=== PATIENT | female | born 1985 | race Caucasian/White ===

== ENCOUNTER → 2022-04-20 | Outpatient (CLI) | payer BC ==
[2022-04-20 14:36] LABS: Basophils # (A) 0.05 X 10*3/uL (0.00-0.10); Basophils % (A) 0.5 %; Eosinophils # (A) 0.14 X 10*3/uL (0.04-0.35); Eosinophils % (A) 1.4 %; HCT 31.4 % (37.2-46.3); HGB 10.2 g/dL (12.0-15.0); Immature Grans, Automated 0.5 %; Lymphocytes # (A) 2.51 X 10*3/uL (0.90-5.00); Lymphocytes % (A) 24.6 %; MCH 27.5 pg (27.0-32.0); MCHC 32.5 g/dL (32.0-37.0); MCV 84.6 fL (80.0-97.0); Mean Platelet Volume 9.5 fL (9.5-12.2); Monocytes # (A) 0.64 X 10*3/uL (0.20-1.00); Monocytes % (A) 6.3 %; NRBC Per 100 WBC 0 /100 WBCS (0.0-0.0); Neutrophils % (A) 66.7 %; Platelet Count 431 X 10*3/uL (140-440); RBC 3.71 X 10*6/uL (4.10-5.20); RDW 14.9 % (11.5-14.5); WBC 10.19 X 10*3/uL (4.50-10.00)
[2022-04-20 15:14] LABS: Hepatitis B Surface Antigen Nonreactive (Nonreactive)
[2022-04-20 16:57] LABS: Appearance,Urine Clear (Clear); Bilirubin,Urine Negative (Negative); Blood,Urine Negative (Negative); Color,Urine Yellow (Yellow); Ketones,Urine Trace mg/dL (Negative); Nitrite,Urine Negative (Negative); PH, Urine 6.5 (5.0-8.0); Specific Gravity,Urine 1.018 (1.001-1.030); Urobilinogen,Urine 0.2 (0.2,1.0)
[2022-04-20 17:24] LABS: HIV 2 AB Non-Reactive (Non-Reactive); HIV AB P24 Non-Reactive (Non-Reactive); HIV P24 AG Non-Reactive (Non-Reactive)
== END | disposition home or self-care (01) ==
LOC: LABWHC1 08:26
PROVIDERS: ATTEND Obstetrics & Gynecology
DX: Z34.81 Encounter for supervision of other normal pregnancy, first trimester (principal); Z3A.00 Weeks of gestation of pregnancy not specified
CPT/HCPCS: 36415; 81003; 82950; 83036; 85025; 86762; 86780; 86850; 86900; 86901; 87086; 87340; 87390

== ENCOUNTER 2022-09-12 06:07 | Inpatient (IN) | payer BC ==
[2022-09-12] MEDS ORDERED: CITRIC ACID-SODIUM CITRATE 15 ML CUP PO ONE (06:14)
[2022-09-12] MEDS ORDERED: NALBUPHINE 10 MG/ML (1 ML AMP) IV PRN (07:10)
[2022-09-12] MEDS ORDERED: MORPHINE SULFATE 2 MG/ML SYRINGE IVP PRN (07:10)
[2022-09-12] MEDS ORDERED: METOCLOPRAMIDE 5 MG/ML 2 ML VIAL IVP PRN ×2 (07:10→08:56)
[2022-09-12] MEDS ORDERED: ONDANSETRON 4 MG/2 ML VIAL IVP PRN (07:10)
[2022-09-12] MEDS ORDERED: diphenhydrAMINE 50 MG/ML 1 ML VIAL IVP PRN ×3 (07:10→08:56)
[2022-09-12] MEDS ORDERED: NALOXONE 0.4 MG/ML 1 ML VIAL IV PRN (07:10)
[2022-09-12 07:15] LABS: Anisocytosis Moderate; Basophils # (A) 0.1 k/uL (0-0.2); Basophils % (A) 1 %; Eosinophils # (A) 0.1 k/uL (0-0.7); Eosinophils % (A) 1 %; HCT 28.3 % (34.0-46.0); HGB 8.4 gm/dL (11.4-16.0); Hypochromasia Marked; Lymphocytes # (A) 2.2 k/uL (1.0-4.8); Lymphocytes % (A) 26 %; MCHC 29.7 g/dL (31.0-37.0); MCV 70.8 fL (80.0-100.0); Mean Platelet Volume 8.9; Microcytosis Marked; Monocytes # (A) 0.6 k/uL (0-1.0); Monocytes % (A) 8 %; Neutrophils # (A) 5.2 k/uL (1.3-7.7); Neutrophils % (A) 61 %; Platelet Count 317 k/uL (150-450); Poikilocytosis Moderate; RDW 20.2 % (11.5-15.5); WBC 8.6 k/uL (3.8-10.6)
[2022-09-12] MEDS: LACTATED RINGERS 1,000 ML IV SCH ×4 (07:32→17:29)
[2022-09-12] MEDS ORDERED: METHYLERGONOVINE 0.2 MG/ML 1 ML AMP ONE (07:46)
[2022-09-12] MEDS ORDERED: DEXAMETHASONE SOD PHOS (MDV) 100 MG/10 ML VIAL ONE (07:46)
[2022-09-12] MEDS ORDERED: KETOROLAC 15 MG/ML 1 ML VIAL ONE (07:46)
[2022-09-12] MEDS ORDERED: MORPHINE SULFATE (PF) 0.3 MG/0.3 ML SYR ONE (07:46)
[2022-09-12] MEDS ORDERED: ONDANSETRON 4 MG/2 ML VIAL ONE (07:46)
[2022-09-12] MEDS ORDERED: PHENYLEPHRINE-0.9% NACL SYG 1,000 MCG/10 ML SYRINGE ONE (07:46)
[2022-09-12] MEDS ORDERED: OXYTOCIN 30 UNITS/500 ML NS BAG IV ONE (07:46)
--- NOTE | 2022-09-12 07:56 | P.HPOB ---
History of Present Illness H&P Date: 09/12/22 (Double footling breech at 39 weeks gestation) Chief Complaint: Double footling breech at 39 weeks gestation This is a 36-year-old female 2 para 0010 EDC 09/19/2022 who presents at 39 weeks gestation with double footling breech. She is consented for primary low transverse section. Fetus is been active throughout the . history is significant for mild -induced hypertension, stable on labetalol 100 mg twice daily. Blood type is A+, rubella status immune. Urine culture, hepatitis B surface antigen, HIV testing, gonorrhea and chlamydia cultures, group B strep cultures all negative. One-hour Glucola elevated, 3 hour GTT within normal limits. Past medical history is significant for blood clot secondary to a broken leg in 2020. Past surgical history tibial repair 2020. Current medications labetalol 100 mg twice daily, baby aspirin 2 daily, vitamin daily. ALLERGIES none known. Family history significant for Down syndrome, Parkinson's disease, brain cancer. Social history patient has never been a smoker, she denies alcohol the being or drug use. She is , her is present and involved. On examination this is a pleasant white female, vital signs are stable and she is afebrile. The general physical exam is within normal limits. The chest is clear in all franco. Jonnathan's maneuver at the bedside confirmed double footling breech with the head in the right upper quadrant. Extremities reveal no edema. heart rate is consistent with reactive NST. Impression: 39 week intrauterine , double footling breech, here for primary low transverse section. -induced hypertension, blood pressure this morning very good. Plan: Primary low transverse section. All risks and benefits have been discussed in detail. All questions answered. Anesthesia present and aware, prophylactic antibiotics ordered. Review of Systems Constitutional: Reports as per HPI Past Medical History Past Medical History: Deep Vein Thrombosis (DVT) Additional Past Medical History / Comment(s): DVT in lower right leg History of Any Multi-Drug Resistant Organisms: None Reported Additional Past Surgical History / Comment(s): Right tibia repair. Past Anesthesia/Blood Transfusion Reactions: Previous Problems w/ Anesthesia, Postoperative Nausea & Vomiting (PONV) Additional Past Anesthesia/Blood Transfusion Reaction / Comment(s): Hard time coming out of anesthesia. Past Psychological History: No Psychological Hx Reported Smoking Status: Never smoker Past Alcohol Use History: None Reported Past Drug Use History: None Reported - Past Family History Father Family Medical History: Cancer Additional Family Medical History / Comment(s): Neuroblastoma Mother Family Medical History: Hypertension Medications and Allergies Home Medications Medication Instructions Recorded Confirmed Type Iron 18 mg PO DAILY 09/12/22 09/12/22 History Labetalol HCl 100 mg PO BID 09/12/22 09/12/22 History Vit No.179/Iron/Folic 1 tablet PO DAILY 09/12/22 09/12/22 History [ Tablet] Allergies Allergy/AdvReac Type Severity Reaction Status Date / Time No Known Allergies Allergy Verified 09/12/22 06:10 Exam Vital Signs Temp Pulse Resp BP Pulse Ox 09/12/22 06:09 96.7 F L 102 H 16 126/74 98 Intake and Output 09/11/22 09/12/22 09/12/22 22:59 06:59 14:59 Other: Weight 83.007 kg See dictation under HPI please Results Result Diagrams: 09/12/22 06:34 Abnormal Lab Results - Last 24 Hours (Table) 09/12/22 Range/Units 06:34 Hgb 8.4 L (11.4-16.0) gm/dL Hct 28.3 L (34.0-46.0) % MCV 70.8 L (80.0-100.0) fL MCH 21.0 L (25.0-35.0) pg MCHC 29.7 L (31.0-37.0) g/dL RDW 20.2 H (11.5-15.5) % Assessment and Plan Assessment: 39 week intrauterine , double footling breech, anemia with hemoglobin 8.4. All signs otherwise reassuring. -induced hypertension, normal blood pressure this morning. Plan: For primary low transverse section. All risks and benefits reviewed. All questions answered. Antibiotics given. Anesthesia aware. Time with Patient: Less than 30
[2022-09-12] MEDS ORDERED: diphenhydrAMINE 50 MG CAP PO PRN (08:56)
[2022-09-12] MEDS ORDERED: ZOLPIDEM 5 MG TAB PO PRN (08:56)
[2022-09-12] MEDS ORDERED: SIMETHICONE 80 MG CHEWABLE PO PRN (08:56)
[2022-09-12] MEDS ORDERED: diphenhydrAMINE 25 MG CAP PO PRN (08:56)
--- NOTE | 2022-09-12 08:56 | P.PCN ---
Date of Procedure: 09/12/22 Preoperative Diagnosis: 39 week intrauterine , double footling breech. Postoperative Diagnosis: Same, liveborn male infant, 8 lbs. 4 oz. or 3750 g. Procedure(s) Performed: Primary low transverse section Anesthesia: spinal Surgeon: Georgia Dai Master Police Detective #1: Marianne Pace Estimated Blood Loss (ml): 847 IV fluids (ml): 1,200 Urine output (ml): 400 Pathology: none sent Condition: stable Disposition: PACU Operative Findings: Liveborn male , double footling breech, 8 lbs. 4 oz., 3750 g, normal- appearing tubes and ovaries bilaterally, no uterine defects or anomalies Description of Procedure: Patient is brought to the operating suite where a spinal with Duramorph is placed without difficulty. Waite catheter is then placed to direct drainage. Antibiotics given. The abdomen is prepped and draped in usual sterile fashion. The appropriate timeout was performed to assure proper patient and procedural identification. Analgesia is checked and noted to be adequate. A low transverse skin incision is made and carried down through the subcutaneous tissue to the fascia. Fascia is isolated, scored, extended bilaterally with curved Mayorga scissors. Peritoneum is next identified and incised. There is no bowel or bladder involvement. Bladder blade is placed over the dome of the bladder which is low and remote from the operative field. A low transverse uterine incision is made in this is carried down through the myometrium. Artificial amniorrhexis reveals clear fluid. The incision is extended with blunt dissection. Both feet are grasped and the legs are delivered, sacrum anterior. A blue towel was wrapped around the trunk and Pinard maneuver is used to deliver bilateral upper extremities. Head is delivered in a flexed position. Patient is officially delivered of a liveborn male infant at 0816 hours. Umbilical cord is doubly clamped and ligated, he is handed to waiting nurses for evaluation where scores of 9 and 9 at one and 5 minutes respectively are given. He weighs 8 lbs. 4 oz. or 3750 g. Placenta is delivered manually, it is inspected and noted to be intact with trivascular cord at 0816 hours. At this time the uterus is externalized and massaged. Bladder blade is placed over the dome of the bladder. Uterus is closed in a two-step fashion, first layer running locking with 0 Vicryl, second layer imbricated also with 0 Vicryl. Excellent reapproximation is noted. Bilateral tubes and ovaries appear healthy and normal. Abdomen is suctioned with suction on guard posterior to the uterus. Uterus is gently placed back into the abdominal cavity. Bilateral gutters are inspected and cleaned. Peritoneum is allowed to close by secondary intention. Fascia is closed in a running stitch of 0 Vicryl with over ligation in the midline. Subcutaneous tissue is irrigated, clean and dry. It is reapproximated with 2-0 Vicryl in a running stitch. 4-0 undyed Monocryl is used for final skin closure. Steri-Strips and Mastisol are applied to the wound. Uterus is massaged for a small amount of bleeding. Patient is brought back to the recovery room in very good condition with stable vital signs including pulse 88, blood pressure 104/50. All sponge needle and enhancement counts are correct. Waite is draining clear urine. Patient is requesting circumcision for her infant son.
[2022-09-12] MEDS: KETOROLAC 15 MG/ML 1 ML VIAL IVP PRN ×2 (16:01→22:08)
[2022-09-12] MEDS: IBUPROFEN 600 MG TAB PO SCH (17:28)
[2022-09-12] MEDS: ACETAMINOPHEN TAB 500 MG TAB PO SCH (17:29)
[2022-09-13] MEDS: ACETAMINOPHEN TAB 500 MG TAB PO SCH ×5 (00:49→21:58)
[2022-09-13] MEDS: LACTATED RINGERS 1,000 ML IV SCH ×2 (03:00→20:07)
[2022-09-13] MEDS: IBUPROFEN 600 MG TAB PO SCH ×4 (03:01→18:18)
[2022-09-13] MEDS: SENNOSIDES-DOCUSATE SODIUM 1 EACH TAB PO SCH ×3 (06:00→21:56)
[2022-09-13] MEDS: KETOROLAC 15 MG/ML 1 ML VIAL IVP PRN (06:05)
[2022-09-13 07:07] LABS: Anisocytosis Moderate; Basophils # (A) 0.1 k/uL (0-0.2); Basophils % (A) 1 %; Eosinophils # (A) 0.1 k/uL (0-0.7); Eosinophils % (A) 1 %; HCT 22.6 % (34.0-46.0); Hypochromasia Marked; Lymphocytes # (A) 2.6 k/uL (1.0-4.8); Lymphocytes % (A) 18 %; MCH 20.6 pg (25.0-35.0); MCHC 29.2 g/dL (31.0-37.0); MCV 70.6 fL (80.0-100.0); Mean Platelet Volume 8.5; Microcytosis Marked; Monocytes # (A) 0.6 k/uL (0-1.0); Monocytes % (A) 5 %; Neutrophils # (A) 10.5 k/uL (1.3-7.7); Neutrophils % (A) 74 %; Platelet Count 278 k/uL (150-450); Poikilocytosis Moderate; RDW 20.3 % (11.5-15.5); WBC 14.3 k/uL (3.8-10.6)
[2022-09-13 07:10] LABS: HGB 6.6 gm/dL (11.4-16.0)
--- NOTE | 2022-09-13 08:35 | P.PN ---
Progress Note - Text Progress Note Date: 09/13/22 Postop day 1 from under spinal anesthesia with intrathecal morphine given for postop pain management. Patient is doing well. Pain is well controlled. On visual analog scale 4/10 Mild itching present No nausea or vomiting reported. No Headache or weakness and numbness in the legs. No complications from spinal anesthesia.
--- NOTE | 2022-09-13 09:20 | P.PN ---
Subjective Progress Note Date: 09/13/22 Principal diagnosis: Doing well postoperative day 1 Positive flatus. Tired. No dizziness or lightheadedness. No pain. Objective - Vital Signs Vital signs: Vital Signs Temp 98.5 F 09/13/22 04:00 Pulse 71 09/13/22 04:00 Resp 16 09/13/22 06:00 BP 103/66 09/13/22 04:00 Pulse Ox 98 09/13/22 04:00 FiO2 Intake & Output 09/12/22 09/13/22 09/13/22 18:59 06:59 18:59 Output Total 1397 1100 Balance -1397 -1100 Output: Urine 500 1100 Uretheral (Waite) 200 Output, Quantitative 897 Blood Loss - Constitutional General appearance: Present: average body habitus, cooperative - EENT Eyes: Present: PERRLA ENT: Present: hearing grossly normal - Respiratory Respiratory: bilateral: CTA - Cardiovascular Rhythm: regular - Gastrointestinal General gastrointestinal: Present: normal bowel sounds - Integumentary Integumentary Comment(s): Incision clean and dry, intact, Steri-Strips applied. Fundus firm, midline, symmetric, 18 week size Integumentary: Present: normal - Neurologic Neurologic: Present: CNII-XII intact - Musculoskeletal Musculoskeletal: Present: gait normal, strength equal bilaterally - Psychiatric Psychiatric: Present: A&O x's 3, appropriate affect, intact judgment & insight - Labs CBC & Chem 7: 09/13/22 06:28 Labs: Abnormal Lab Results - Last 24 Hours (Table) 09/13/22 Range/Units 06:28 WBC 14.3 H (3.8-10.6) k/uL RBC 3.20 L (3.80-5.40) m/uL Hgb 6.6 L* D (11.4-16.0) gm/dL Hct 22.6 L (34.0-46.0) % MCV 70.6 L (80.0-100.0) fL MCH 20.6 L (25.0-35.0) pg MCHC 29.2 L (31.0-37.0) g/dL RDW 20.3 H (11.5-15.5) % Neutrophils # 10.5 H (1.3-7.7) k/uL Assessment and Plan Assessment: Doing well first post operative day Plan: Ferrous sulfate twice daily. Advanced diet and activities. Circumcision has been performed. Likely discharge home tomorrow Time with Patient: Less than 30
[2022-09-14] MEDS: IBUPROFEN 600 MG TAB PO SCH ×3 (01:07→08:53)
[2022-09-14] MEDS: FERROUS SULFATE 325 MG TAB PO SCH ×2 (01:07→08:53)
[2022-09-14] MEDS: ACETAMINOPHEN TAB 500 MG TAB PO SCH ×3 (01:08→14:37)
[2022-09-14] MEDS: SENNOSIDES-DOCUSATE SODIUM 1 EACH TAB PO SCH (08:52)
[2022-09-14 10:22] VITALS: BP 125/70; PULSE 90; RESP 15; TEMP 98.5
--- NOTE | 2022-09-14 12:03 | P.DS ---
Providers Date of admission: 09/12/22 06:07 Expected date of discharge: 09/14/22 Attending physician: Georgia Dai Primary care physician: Stated None - Discharge Diagnosis(es) (1) Status post section Current Visit: Yes Status: Acute Hospital Course: the patient is a 36-year-old 2 para 0010 admitted at 39 weeks with unknown presentation in double footling breech. She has consented to primary low transverse section. There been no complications such from mild -induced hypertension which was stable on labetalol 100 mg twice daily. She was taken the operating room where she was delivered of a viable 8 lbs. 4 oz. baby boy with Apgars of 9 at 1 minute and 9 at 5 minutes. Her and postoperative courses have been unremarkable with vital signs being stable and her temperature was afebrile throughout. She was deemed stable for discharge on and postoperative day #3 as the infant required blood cultures and would not be discharged until 48 hours post blood cultures. She was discharged home to follow-up in the office in 2 weeks for an incision check and 6 weeks routinely. Discharge instructions included calling for any significantly increased bleeding or foul-smelling lochia, significantly increased fever or abdominal pain, perineal complaints, breast complaints, incisional complaints, or anything else that concerned her. She is additionally instructed to have nothing in the vagina for at least 6 weeks time to include intercourse. She understood her instructions and agrees to follow up as noted above. Discharge medications included continue vitamins as she has opted to breast-feed. She was otherwise to use [id number]-[id number] analgesic pain medications as needed. She was provided a prescription for [place] 5/325 mg, 1-2 by mouth every 6 hours when necessary pain, #20 dispensed with no refills. Maternal blood type is A+ and rubella status is immune. Discharge hemoglobin and hematocrit were 6.6 and 22.6 respectively. The patient is asymptomatic from this and is taking iron by mouth and was instructed to continue to do this released 1 month as an outpatient. Procedures: #1. Primary low-transverse section Patient Condition at Discharge: Stable Plan - Discharge Summary New Discharge Prescriptions: No Action Labetalol HCl 100 mg PO BID Vit No.179/Iron/Folic [ Tablet] 1 tablet PO DAILY Iron 18 mg PO DAILY Discharge Medication List Iron 18 mg PO DAILY 09/12/22 [History] Labetalol HCl 100 mg PO BID 09/12/22 [History] Vit No.179/Iron/Folic [ Tablet] 1 tablet PO DAILY 09/12/22 [History] Follow up Appointment(s)/Referral(s): Georgia Dai MD [STAFF PHYSICIAN] - 2 Weeks Discharge Disposition: HOME SELF-CARE
== END 2022-09-14 17:05 | disposition home or self-care (01) | DRG 788 ==
LOC: 4FBP 06:07
PROVIDERS: ADMIT Obstetrics & Gynecology; ATTEND Obstetrics & Gynecology
PROC: 10D00Z1 Extraction of Products of Conception, Low, Open Approach (ICD-10-PCS; principal; 2022-09-12 07:49)
DX: O32.8XX0 Maternal care for other malpresentation of fetus, not applicable or unspecified (principal); O13.4 Gestational [pregnancy-induced] hypertension without significant proteinuria, complicating childbirth; O99.02 Anemia complicating childbirth; Z37.0 Single live birth; Z3A.39 39 weeks gestation of pregnancy; Z82.79 Family history of other congenital malformations, deformations and chromosomal abnormalities
CPT/HCPCS: 85025; 86850; 86900; 86901

== ENCOUNTER 2024-03-25 12:00 | Inpatient (IN) | payer BC ==
[2024-03-26] MEDS ORDERED: METHYLERGONOVINE 0.2 MG/ML 1 ML AMP IM PRN (08:17)
[2024-03-26] MEDS ORDERED: OXYTOCIN 10 UNIT/ML 1 ML VIAL IM PRN (08:17)
[2024-03-26] MEDS ORDERED: CARBOPROST TROMETHAMINE 250 MCG/ML 1 ML AMP IM PRN (08:17)
[2024-03-26] MEDS ORDERED: TRANEXAMIC 1,000 MG/100ML-NACL 1,000 MG in EMPTY BAG 1 BAG IV PRN (08:17)
[2024-03-26] MEDS ORDERED: miSOPROStoL 200 MCG TAB PO PRN (08:17)
[2024-03-26 08:30] LABS: Glucose,Whole Blood 97 mg/dL (70-110)
[2024-03-26] MEDS: LACTATED RINGERS 1,000 ML IV ONE (08:44)
[2024-03-26 08:51] LABS: Anisocytosis Marked; HCT 27.3 % (34.0-46.0); HGB 8.3 gm/dL (11.4-16.0); Hypochromasia Marked; MCH 23.1 pg (25.0-35.0); MCHC 30.6 g/dL (31.0-37.0); MCV 75.6 fL (80.0-100.0); Microcytosis Marked; Platelet Count 294 k/uL (150-450); Poikilocytosis Slight; RBC 3.61 m/uL (3.80-5.40); WBC 7.8 k/uL (3.8-10.6)
[2024-03-26] MEDS: CITRIC ACID-SODIUM CITRATE 15 ML CUP PO ONE (09:40)
[2024-03-26 09:43] LABS: RDW 27.5 % (11.5-15.5)
[2024-03-26] MEDS ORDERED: OXYTOCIN 30 UNITS/500 ML NS BAG IV ONE (09:59)
[2024-03-26] MEDS ORDERED: NALBUPHINE 10 MG/ML (10 ML MDV) ONE (09:59)
[2024-03-26] MEDS ORDERED: DEXAMETHASONE SOD PHOSPHATE 4 MG/ML 1 ML VIAL ONE (09:59)
[2024-03-26] MEDS ORDERED: MORPHINE SULFATE (PF) 0.3 MG/0.3 ML SYR ONE (09:59)
[2024-03-26] MEDS ORDERED: ONDANSETRON 4 MG/2 ML VIAL ONE (09:59)
[2024-03-26] MEDS ORDERED: KETOROLAC 15 MG/ML 1 ML VIAL ONE (09:59)
[2024-03-26 10:06] LABS: Lymphocytes # (M) 1.33 k/uL (1.0-4.8); Monocytes # (M) 0.94 k/uL (0-1.0); Neutrophils # (M) 5.54 k/uL (1.3-7.7); Neutrophils % (M) 71 %; Nucleated Red Blood Cells 0 /100 WBC (0-0); Total Cells Counted 100
[2024-03-26] MEDS ORDERED: MORPHINE SULFATE 2 MG/ML SYRINGE IVP PRN (10:59)
[2024-03-26] MEDS ORDERED: ONDANSETRON 4 MG/2 ML VIAL IVP PRN ×2 (10:59→11:14)
[2024-03-26] MEDS ORDERED: NALBUPHINE 10 MG/ML (10 ML MDV) IV PRN (10:59)
[2024-03-26] MEDS ORDERED: METOCLOPRAMIDE 5 MG/ML 2 ML VIAL IVP PRN ×2 (10:59→11:14)
[2024-03-26] MEDS ORDERED: diphenhydrAMINE 50 MG/ML 1 ML VIAL IVP PRN ×3 (10:59→11:14)
[2024-03-26] MEDS ORDERED: NALOXONE 0.4 MG/ML 1 ML VIAL IV PRN ×2 (10:59→11:14)
--- NOTE | 2024-03-26 11:09 | P.HPOB ---
History of Present Illness H&P Date: 03/26/24 Chief Complaint: scheduled repeat section Ms. Minor is a 38 year old at 39 weeks and 1 day with EDC of 04/01/2024 who presents to labor and delivery for scheduled repeat section. Her has been complicated by gestational diabetes, which has been very well controlled with diet. The patient also has a history of provoked DVT after leg trauma, for which sheused 162mg of aspirin daily throughout the . The fetus is estimated to be in the 77%ile for growth based on a 36 week US. The fetus is also noted to be breech at that time. Obstetric history: 1 FTCS complicated by gestational hypertension, 1 SAB work-up: blood type A positive, antibody screen negative, rubella immune, VDRL non-reactive, HBsAg negative, HIV negative, Hep C Ab non-reactive, gonorrhea negative, chlamydia negative, failed 1 and 3 hour GTTs, GBS negative. s/p TDap in 3rd trimester. Past Medical History Past Medical History: Diabetes Mellitus, Deep Vein Thrombosis (DVT), GERD/Reflux Additional Past Medical History / Comment(s): DVT in lower right leg 2020, gestational diabetes - diet controlled. weekly iron infusion - x3 anemia. History of Any Multi-Drug Resistant Organisms: None Reported Past Surgical History: Section Additional Past Surgical History / Comment(s): Right tibia repair. Past Anesthesia/Blood Transfusion Reactions: Previous Problems w/ Anesthesia, Po stoperative Nausea & Vomiting (PONV) Additional Past Anesthesia/Blood Transfusion Reaction / Comment(s): nausea with epidural. Hard time coming out of anesthesia. tibia repair, Past Psychological History: No Psychological Hx Reported Smoking Status: Never smoker Past Alcohol Use History: None Reported Past Drug Use History: None Reported - Past Family History Father Family Medical History: Cancer Additional Family Medical History / Comment(s): Neuroblastoma Mother Family Medical History: Hypertension Medications and Allergies Home Medications Medication Instructions Recorded Confirmed Type Iron 18 mg PO DAILY 09/12/22 03/26/24 History Vit No.179/Iron/Folic 1 tablet PO DAILY 09/12/22 03/26/24 History [ Tablet] Aspirin 162 mg PO DAILY 03/23/24 03/26/24 History Allergies Allergy/AdvReac Type Severity Reaction Status Date / Time No Known Allergies Allergy Verified 03/26/24 08:16 Exam Vital Signs Temp Pulse Resp BP Pulse Ox 03/26/24 08:16 97.2 F L 93 18 140/66 98 Intake and Output 03/25/24 03/26/24 03/26/24 22:59 06:59 14:59 Other: Weight 78.925 kg Focused physical exam is performed. This is a healthy-appearing in no apparent distress. Breathing is non-labored. Abdomen is gravid and non-tender. Extremities non-tender and non-edematous. heart tones are reactive and reassuring on NST. Results Result Diagrams: 03/26/24 08:37 Abnormal Lab Results - Last 24 Hours (Table) 03/26/24 Range/Units 08:37 RBC 3.61 L (3.80-5.40) m/uL Hgb 8.3 L (11.4-16.0) gm/dL Hct 27.3 L (34.0-46.0) % MCV 75.6 L (80.0-100.0) fL MCH 23.1 L (25.0-35.0) pg MCHC 30.6 L (31.0-37.0) g/dL RDW 27.5 H (11.5-15.5) % Assessment and Plan Assessment: 38 year old at 39 weeks and 1 day presenting for scheduled repeat section Plan: Admit, NPO, initiate protocol with 2g Kefzol for surgical prophylaxis.
[2024-03-26] MEDS ORDERED: diphenhydrAMINE 50 MG CAP PO PRN (11:14)
[2024-03-26] MEDS ORDERED: SIMETHICONE 80 MG CHEWABLE PO PRN (11:14)
[2024-03-26] MEDS ORDERED: ZOLPIDEM 5 MG TAB PO PRN (11:14)
[2024-03-26] MEDS ORDERED: diphenhydrAMINE 25 MG CAP PO PRN (11:14)
--- NOTE | 2024-03-26 11:14 | P.OP ---
Date of Procedure: 03/26/24 Preoperative Diagnosis: 1. Term IUP at 39 weeks and 2 day 2. Previous section 3. Declines TOLAC 4. Breech presentation Postoperative Diagnosis: Same Procedure(s) Performed: Repeat Lower Transverse Section Implants: None Anesthesia: spinal Surgeon: Marianne Pace Algorithm Developer #1: Krystina Estrella Estimated Blood Loss (ml): 652 IV fluids (ml): 1,100 Urine output (ml): 500 Pathology: none sent Condition: stable Disposition: floor Indications for Procedure: Ms. Minor is a 38 year old at 39 weeks and 1 day presenting for scheduled repeat section. She was counseled on TOLAC versus repeat section in the office and had no desire to TOLAC. The risks, benefits, and alternatives to section were discussed with the patient including risk of bleeding, infection, damage to surrounding structures including bladder/bowels/ureters, and post-operative VTE. The patient understands these risks and desires to proceed with section. Operative Findings: Clear amniotic fluid. Viable male infant with apgars of 8 and 9. Weight 7 pounds and 12 ounces (3520 grams). Normal uterus, bilateral fallopian tubes and ovaries. Description of Procedure: The patient was taken back to the operating room where spinal anesthesia was found to be adequate. Two grams of Ancef were given for infection prophylaxis. She was prepared and draped in the dorsal supine position with a leftward tilt. A Pfannenstiel skin incision was made with the scalpel. The incision was carried down to the fascia with a bovie. The fascia was incised and extended laterally with Mayorga scissors. The superior aspect of the fascia was grasped with the Richa clamps. The underlying rectus muscle was dissected off sharply with Mayorga scissors. In a similar fashion, the inferior aspect of the fascia was elevated with Richa clamps and the rectus muscle and pyramidalis were dissected off. Excellent hemostasis was achieved with the bovie. The rectus muscle was in the midline down to the level of the pubic symphysis. Pre- peritoneal fatty tissue was bluntly dissected to expose the peritoneum. The pe ritoneum was found to be free of adherent bowel and entered sharply with Mayorga scissors. The peritoneal incision was extended superiorly and inferiorly to the bladder reflection with good visualization of the bladder. The bladder blade was inserted and vesicouterine peritoneum was identified. Intraabdominal survey revealed scant, clear peritoneal fluid and the thinned-out lower uterine segment. The vesicouterine peritoneum was opened with scissors and the bladder flap was developed. The bladder blade was repositioned to keep the bladder out of the operative field. The lower uterine segment was incised with a scalpel. The amniotic sac was ruptured with an Allis clamp and clear fluid was noted. The uterine incision was extended bluntly with lateral and upward traction. The fetus was in double footling breech presentation. The feet were brought through the incision. The buttocks was palpated and delivered gradually through the hysterotomy. With gentle pressure the body gradually delivered. Once the scapula could be seen the baby was gently rotated and both arms were delivered using the Lov[place]at maneuver. Maintaining head flexion in a modified Zpxakcam-sagmpae-cwty maneuver the head was delivered without difficulty. The was delivered with no difficulty and was noted to be crying spontaneously. The mouth and nose were suctioned with a bulb. The cord was clamped and cut. The was handed off to the curtain cutter. IV oxytocin was initiated to facilitate uterine contractions. The placenta was delivered intact with manual massage of uterine fundus. The uterus was then exteriorized and the inside of the uterus was gently wiped with a lap sponge to assure complete removal of placental membranes. The uterine incision was closed with 0-Vicryl suture in a running locked fashion. A second imbricating layer was placed with 0-Vicryl. The ovaries and tubes were found to be normal. The uterus, tubes, and ovaries were then gently returned to the abdominal cavity. The abdomen was copiously suction irrigated. Surgicel powder was placed along the incision to facilitate hemostasis. The uterine incision was reinspected and excellent hemostasis was noted. The fascial layer was closed with a 0-Vicryl suture. The subcutaneous tissue was reapproximated with 2-0 Plain Gut. The skin was closed with 4-0 Monocryl in a subcuticular fashion.The patient tolerated the procedure well. All the counts were correct times two. The patient was taken to the recovery room in a stable condition. A physician surgical garment inspector was utilized for the entire procedure due to the need for tissue retraction, dissection of vital structures, prevention and management of blood loss, and reduction in overall operative and anesthesia time as is the standard of care.
[2024-03-26] MEDS: LACTATED RINGERS 1,000 ML IV SCH ×2 (19:39)
[2024-03-26] MEDS: IBUPROFEN 600 MG TAB PO SCH (19:40)
[2024-03-26] MEDS: ACETAMINOPHEN TAB 500 MG TAB PO SCH (19:40)
[2024-03-26] MEDS: SENNOSIDES-DOCUSATE SODIUM 1 EACH TAB PO SCH (19:40)
[2024-03-26] MEDS: KETOROLAC 15 MG/ML 1 ML VIAL IVP SCH (19:42)
[2024-03-27 05:31] LABS: Anisocytosis Marked; Basophils # (A) 0.1 k/uL (0-0.2); Basophils % (A) 0 %; Eosinophils # (A) 0.1 k/uL (0-0.7); Eosinophils % (A) 0 %; HCT 25.6 % (34.0-46.0); HGB 7.4 gm/dL (11.4-16.0); Hypochromasia Marked; Lymphocytes # (A) 2.2 k/uL (1.0-4.8); Lymphocytes % (A) 20 %; MCH 22.2 pg (25.0-35.0); MCHC 29.1 g/dL (31.0-37.0); MCV 76.2 fL (80.0-100.0); Mean Platelet Volume 7.5; Microcytosis Marked; Monocytes # (A) 0.6 k/uL (0-1.0); Monocytes % (A) 6 %; Neutrophils # (A) 8.1 k/uL (1.3-7.7); Neutrophils % (A) 72 %; Platelet Count 275 k/uL (150-450); Poikilocytosis Slight; RBC 3.36 m/uL (3.80-5.40); WBC 11.2 k/uL (3.8-10.6)
[2024-03-27 05:54] VITALS: TEMP 98.3
[2024-03-27 06:41] LABS: RDW 28.1 % (11.5-15.5)
--- NOTE | 2024-03-27 08:36 | P.PNOBGPC ---
Subjective - Subjective Principal diagnosis: s/p repeat section Interval history: The patient is doing well this morning and had no acute events overnight. She has no complaints this morning. She reports minimal lochia, passing flatus, ambulating, and eating/drinking without nausea or vomiting. She is breast feeding her infant without difficulty. She denies chest pain, shortness of breathing, fevers, or chills overnight. She denies pain or swelling in the legs. Patient reports: Reports appetite normal, Reports voiding normally, Reports pain well controlled, Reports ambulating normally : doing well, nursing well Objective - Vital Signs Latest vital signs: Vital Signs Temp Pulse Resp BP Pulse Ox 03/27/24 04:00 98.3 F 77 16 111/71 100 03/26/24 23:00 97.9 F 76 16 94/50 97 03/26/24 20:00 97.6 F 82 16 103/65 97 03/26/24 19:00 97 03/26/24 16:00 97.8 F 58 L 16 97/55 99 03/26/24 15:59 98 03/26/24 13:59 16 03/26/24 12:55 79 16 100/57 03/26/24 12:40 77 16 110/59 03/26/24 12:25 77 16 108/57 95 03/26/24 12:10 69 16 106/56 03/26/24 11:59 16 96 03/26/24 11:55 77 16 106/56 95 03/26/24 11:40 76 16 116/56 95 03/26/24 11:25 75 16 107/58 03/26/24 11:10 86 16 105/65 97 03/26/24 10:59 16 97 03/26/24 10:55 97.7 F 80 18 97/52 98 Intake and Output 03/26/24 03/27/24 03/27/24 22:59 06:59 14:59 Output Total 1300 3200 Balance -1300 -3200 Output: Urine 1300 3200 Uretheral (Waite) 400 1600 Other: Voiding Method Indwelling Catheter - Exam Extremities: Present: normal Abdomen: Present: normal appearance, soft Incision: Present: normal, dry, intact Uterus: Present: normal - Labs Labs: Abnormal Lab Results - Last 24 Hours (Table) 03/26/24 03/27/24 Range/Units 08:37 04:44 WBC 11.2 H (3.8-10.6) k/uL RBC 3.61 L 3.36 L (3.80-5.40) m/uL Hgb 8.3 L 7.4 L (11.4-16.0) gm/dL Hct 27.3 L 25.6 L (34.0-46.0) % MCV 75.6 L 76.2 L (80.0-100.0) fL MCH 23.1 L 22.2 L (25.0-35.0) pg MCHC 30.6 L 29.1 L (31.0-37.0) g/dL RDW 27.5 H 28.1 H (11.5-15.5) % Neutrophils # 8.1 H (1.3-7.7) k/uL Assessment and Plan Assessment: 38 year old now POD#1 s/p scheduled repeat section Plan: 1. Postoperative. Awaiting void, continue to monitor. Otherwise, meeting postoperative milestones appropriately. 2. Acute blood loss anemia. Will give IV ferrlicit this morning. AM Hgb 7.4. 3. Viable male infant, s/p circumcision. Dispo: Anticipate discharge home on POD#2
[2024-03-27] MEDS: SODIUM FERRIC GLUCONAT-SUCROSE 125 MG in SODIUM CHLORIDE 0.9% 100 ML IVPB SCH (09:18)
--- NOTE | 2024-03-27 11:07 | P.PN ---
Progress Note - Text Progress Note Date: 03/27/24 Postoperative day 1 status post section under spinal anesthesia, and intrathecal morphine given for postoperative analgesia, patient doing well, there is no anesthesia related complications, Patient had no headache, vital signs stable , Assessment and plan= postop day 1 status post , doing well there is no anesthesia related complication.
--- NOTE | 2024-03-28 07:01 | P.DS ---
Providers Date of admission: 03/26/24 07:59 Expected date of discharge: 03/28/24 Attending physician: Marianne Pace MD Primary care physician: Aristides Guadarrama - Discharge Diagnosis(es) (1) Term Current Visit: Yes Status: Acute (2) History of section Current Visit: Yes Status: Acute (3) GDM (gestational diabetes mellitus) Current Visit: Yes Status: Acute (4) Breech presentation Current Visit: Yes Status: Acute (5) AMA (advanced maternal age) multigravida 35+ Current Visit: Yes Status: Acute (6) Status post section Current Visit: No Status: Acute Hospital Course: 38-year-old 3 para 1-0-1-1 that presented to labor and delivery on 03/26 for scheduled repeat section at 39-1/7 weeks. Patient had a history of a primary and requested repeat, in addition was noted to be in breech presentation. Patient had a complicated by diagnosis of gestational diabetes. For full details in this patient please see the dictated history and physical. Patient was admitted and taken back to the operating suite where repeat section was completed. For full details on the C- section please see the dictated operative report. Patient's postoperative course has been uneventful. In this postoperative day #2 she is ambulating and voiding without difficulty. She is tolerating a regular diet without nausea or vomiting. Her lochia is minimal. She states her pain is well-controlled. She denies concerns and would like discharge home. Patient Condition at Discharge: Good Plan - Discharge Summary Discharge Rx Participant: No New Discharge Prescriptions: No Action Vit No.179/Iron/Folic [ Tablet] 1 tablet PO DAILY Iron 18 mg PO DAILY Aspirin 162 mg PO DAILY Discharge Medication List Iron 18 mg PO DAILY 09/12/22 [History] Vit No.179/Iron/Folic [ Tablet] 1 tablet PO DAILY 09/12/22 [History] Aspirin 162 mg PO DAILY 03/23/24 [History] Follow up Appointment(s)/Referral(s): Marianne Pace MD [STAFF PHYSICIAN] - 04/08/24 11:30 am (05/06/24 1130a) Patient Instructions/Handouts: (DC), (GEN) Activity/Diet/Wound Care/Special Instructions: No intercourse, or tub baths. No heavy lifting greater than a gallon of milk. No driving for two weeks. Call with any fever, shakes or chills, with any pain not alleviated by over the counter meds, or with any questions or concerns. [id number] ibuprofen 600 mg or 3 tablets every 6 hours as needed for pain. Discharge Disposition: HOME SELF-CARE
[2024-03-28 09:58] VITALS: BP 111/67; PULSE 96; RESP 18
== END 2024-03-28 13:30 | disposition home or self-care (01) | DRG 787 ==
LOC: 4FBP 03-26 07:59
PROVIDERS: ADMIT Obstetrics & Gynecology; ATTEND Obstetrics & Gynecology
PROC: 10D00Z1 Extraction of Products of Conception, Low, Open Approach (ICD-10-PCS; principal; 2024-03-26 10:00)
DX: O34.211 Maternal care for low transverse scar from previous cesarean delivery (principal); D62 Acute posthemorrhagic anemia; O24.420 Gestational diabetes mellitus in childbirth, diet controlled; O32.1XX0 Maternal care for breech presentation, not applicable or unspecified; O99.02 Anemia complicating childbirth; Z3A.39 39 weeks gestation of pregnancy; Z79.82 Long term (current) use of aspirin; Z37.0 Single live birth; Z82.49 Family history of ischemic heart disease and other diseases of the circulatory system
CPT/HCPCS: 83036; 85025; 86850; 86900; 86901